=== PATIENT | female | born 1970 | race Caucasian/White ===

== ENCOUNTER 2018-10-27 05:50 | Emergency (ER) | payer MEDICAID ==
[~2018-10-27] VITALS: Ht 152.4 cm; Wt 59.0 kg
[2018-10-27 05:54] VITALS: BP 126/55
--- NOTE | 2018-10-27 06:07 | NUR ---
PT AMBULATED TO BED 6
--- NOTE | 2018-10-27 06:10 | NUR ---
48 Y/O FEMALE PRESENTS TO ED, C/O PRESSURED CHEST PAIN. PT STATES PAIN OCCURED ON TUESDAY, WENT TO URGENT CARE AND WAS REFERRED TO [facility] DUE TO ABNORMAL EKG RESULTS. PT STATES PAIN IS ON LEFT SIDE OF CHEST AND RADIATES TO LEFT SHOULDER. NO TINGLING SENSATION ON ARMS. NO EDEMA ON EXTREMITIES. NO NVD. PT HAS HX OF HTN. PT VSS. DR REMY AWARE. WILL CONTINUE TO MONITOR.
--- NOTE | 2018-10-27 06:29 | NUR ---
Dr. Villalobos examining patient.
--- NOTE | 2018-10-27 07:05 | NUR ---
X-Ray at bedside.
[2018-10-27 07:09] LABS: BASOPHILS % (AUTO) 1.1 % (0.0-2.0); EOSINOPHILS # (AUTO) 0.1 K/uL (0-0.4); HEMATOCRIT 38.3 % (36-48); HEMOGLOBIN 13.1 g/dL (12.0-16.0); LYMPHOCYTES % (AUTO) 31.9 % (20.5-51.1); MEAN CORPUSCULAR HEMOGLOBIN 32 pg (27-31); MEAN CORPUSCULAR HGB CONC 34 g/dL (33-37); MONOCYTES # (AUTO) 0.2 K/uL (0.8-1.0); MONOCYTES % (AUTO) 5.8 % (1.7-9.3); NEUTROPHILS # (AUTO) 1.8 K/uL (1.8-7.7); NEUTROPHILS % (AUTO) 58.2 % (42.2-75.2); PLATELET COUNT (AUTO) 196 K/uL (140-450); RED BLOOD CELL COUNT(AUTO) 4.16 MIL/uL (4.20-5.40); RED CELL DISTRIBUTION WIDTH 12.9 % (11.6-13.7); WHITE BLOOD COUNT (AUTO) 3.1 K/uL (4.8-10.8)
--- NOTE | 2018-10-27 07:11 | NUR ---
REPORT GIVEN TO JOSÉ MIGUEL SILVER. PT CARE TRANSFERRED.
--- NOTE | 2018-10-27 07:14 | NUR ---
Note estuardo in ED - 10/27/18 at 0714 by IDALIA RECEIVED REPORT FROM NADEEM CLIFTON. PT IN STABLE CONDITION, SITTING IN BED, MOTHER AT BEDSIDE. DENIES PAIN AT THIS TIME.
--- NOTE | 2018-10-27 07:14 | NUR ---
RECEIVED REPORT FROM NADEEM CLIFTON. PT IN STABLE CONDITION.
[2018-10-27 07:24] LABS: ALBUMIN 3.8 g/dL (3.4-5.0); ANION GAP 13.2 (8-16); CARBON DIOXIDE 27.4 mmol/L (21-32); CREATININE 0.8 mg/dL (0.6-1.3); POTASSIUM 3.6 mmol/L (3.5-5.1); TOTAL BILIRUBIN 0.5 mg/dL (0.0-1.0)
--- NOTE | 2018-10-27 08:20 | NUR ---
Patient discharged with v/s stable. Written and verbal after care instructions given and explained. INFORMATION OF [employer] ALONG WITH LAB RESULTS AND CXR REPORT GIVEN TO PATIENT. INFORMED PT TO F/U WITH S[employer]EL[employer] OUTPATIENT. Patient verbalized understanding. Ambulatory with steady gait. All questions addressed prior to discharge. Advised to follow up with PMD.
[2018-10-27 08:22] VITALS: BP 115/59
== END 2018-10-27 08:20 | disposition home or self-care (01) ==
LOC: MED 05:50
DX: R07.89 Other chest pain (principal); R00.1 Bradycardia, unspecified; I10 Essential (primary) hypertension; Z79.899 Other long term (current) drug therapy
CPT/HCPCS: 36415; 71045; 80053; 81025; 83880; 84484; 85025; 93005; 99285; Q0092